=== PATIENT | female | born 1955 | race Caucasian/White ===

== ENCOUNTER 2016-09-27 09:13 | Inpatient (IN) | payer OTHER ==
[2016-09-27] VITALS (9 sets, daily range): BP systolic 104–126; BP diastolic 60–67; PULSE 75–86; RESP 13–18; O2SAT 94–99
[~2016-09-27] VITALS: Ht 166.4 cm; Wt 59.3 kg
[~2016-09-27 09:13] MED LIST: ACYC400T2 PO; Bupivacaine Liposome 1.3% 20 mL Inj INFILTRATE ONE; CALC-714 PO; CETI10CA PO; CHOL500011 PO; CYAN1TAB42 PO; DIPH25CA6 PO; DOCU-41 PO; ESCI20TA38 PO; GABA-502 PO; Gentamicin 40 mg/mL 2 mL Inj IV ONE; Hip/Knee Infiltration Cocktail IM ONE; LYSI1000 PO; Lactated Ringer's 1,000 ML IV SCH; MELO7.5O2 PO; MULT-1018 PO; OMEP20CA11 PO; RANI150T11 PO; SERT50TA9 PO; TRAZ-115 PO
[2016-09-27] MEDS ORDERED: CeFAZolin 2 Gm/50 mL D5W Duplex Bag IV ONE (09:46)
[2016-09-27] MEDS ORDERED: Hip/Knee Infiltration Cocktail IM ONE ×7 (10:00)
[2016-09-27] MEDS: Lactated Ringer's 1,000 ML IV SCH ×4 (10:53→23:46)
[2016-09-27] MEDS ORDERED: Magnesium Hydroxide 10 mL Oral Concentration PO PRN (10:55)
[2016-09-27] MEDS ORDERED: Sodium Biphos-Phos 133 mL Enema RECTAL PRN (10:55)
[2016-09-27] MEDS ORDERED: Ketorolac 15 mg/mL Inj IVPUSH PRN (10:55)
[2016-09-27] MEDS ORDERED: HYDROcodone-APAP 5-325 mg Tablet PO PRN (10:55)
[2016-09-27] MEDS ORDERED: diphenhydrAMINE 25 mg Capsule PO PRN (10:55)
[2016-09-27] MEDS ORDERED: Ondansetron 2 mg/mL 2 mL Inj IVPUSH PRN ×2 (10:55→11:00)
[2016-09-27] MEDS ORDERED: Polyethylene Glycol (PEG) 17 Gm Powder PO PRN (10:55)
[2016-09-27] MEDS ORDERED: MetoCLOpramide 5 mg/mL 2 mL Inj IVPUSH PRN ×2 (10:55→11:00)
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
[2016-09-27] MEDS ORDERED: Lactated Ringer's 500 ML IV PRN (10:56)
[2016-09-27] MEDS ORDERED: Lactated Ringer's 1,000 ML IV SCH (10:56)
[2016-09-27] MEDS ORDERED: Labetalol 5 mg/mL 4 mL Inj IV PRN (11:00)
[2016-09-27] MEDS ORDERED: Phenylephrine 10,000 mCg/mL Inj IVPUSH PRN (11:00)
[2016-09-27] MEDS ORDERED: Atropine 0.4 mg/mL Inj IVPUSH PRN (11:00)
[2016-09-27] MEDS ORDERED: fentaNYL-PF 50 mCg/mL 2 mL Inj IVPUSH PRN (11:00)
[2016-09-27] MEDS ORDERED: EPHEDrine Sulfate 50 mg/mL Inj IVPUSH PRN (11:00)
[2016-09-27] MEDS ORDERED: HYDROmorphone 1 mg/mL Inj IVPUSH PRN (11:00)
[2016-09-27] MEDS ORDERED: Dexamethasone 4 mg/mL Inj IVPUSH PRN (11:00)
[2016-09-27] MEDS ORDERED: hydrALAZINE 20 mg/mL Inj IVPUSH PRN (11:00)
--- NOTE | 2016-09-27 11:04 | PCM.ORTHOP ---
Orthopedic Operative Report Date of Service: Sep 27, 2016 Pre Operative Diagnosis left shoulder arthritis, massive RTC tear Post Operative Diagnosis left shoulder arthritis, massive RTC tear Procedure left reverse total shoulder arthroplasty, biceps tenodesis Surgeon Surgeon: Karthik Gutierrez MD Assistants: Corwin Glass Indication for Procedure left shoulder arthritis, massive RTC tear Findings left shoulder arthritis, massive RTC tear, biceps tenosynovitis Details of Procedure Implant:[employer] Reverse fracture system: 36+ 2 huemral insert, size 7 CaP coated humeral stem, small glenoid baseplate, size 36+4 mm glenosphere, central non-locking screw size 6.5X25mm, peripheral locking screw 30mm, peripheral locking screw 30mm Patient Status: Patient was extubated and taken to recovery room in stable condition. Indications: Ana Perales presents with shoulder pain with pseudoparalysis and glenohumeral arthritis. The patient was offered conservative treatments versus surgical intervention given the severity of the injury and the patient opted for surgery. A clear explanation was given to the patient regarding the condition present, and the available conservative and surgical options. It was emphasized that the risks and benefits of surgery include but are not limited to infection, wound healing problems, damage to adjacent structures such as nerves, blood vessels and tendons, jail disability and pain, arthritis, hypersensitivity, deep vein thrombosis, pulmonary embolism, broken hardware, failure of surgery, need for further procedures at time of surgery or later, cast related problems, loss of limb or life. The patient was given an explanation and the patient voiced understanding of what to expect after the procedure or surgery, the limitations in activities of daily living, the likely duration for post operative recovery and the instructions that are to be followed. At the end the patient was invited to seek clarification or ask further questions but there were none. The patient voiced understanding of the entire consultation. Description of Procedure: Patient was taken to operating room and transferred to operating table in supine position. Time out was performed with both anesthesia and orthopaedics faculty present to confirm details of case to be performed. After time out performed, patient placed under general anesthesia and endotracheal tube secured into place. Once endotracheal tube secured, the patient was placed into the modified beach-chair position at about 40 degrees of flexion. Patient position was again checked to ensure all bony prominences adequately padded. The left arm was prepped and draped in the usual sterile fashion to the level of the neck. A standard deltopectoral incision was made beginning immediately above the coracoid process and extending distally and laterally. The deltoid muscle was split through the interval being carefully not to release any deltoid along the clavicle or humerus. The proximal one-third of the pectoralis major muscle was incised off the humerus for better exposure. The supraspinatus and infraspinatus muscles were intact and still attached to the fractured greater tuberosity. The subscapularis was intact and also still attached to the fractured lesser tuberosity. It was incised through the tendinous portion just medial to the lesser tuberosity and tagged with 2-0 Fiberwire. The arm was externally rotated to expose the humeral head while the anterior humeral circumflex vessels ("3 sisters") were identified, ligated and then cut protecting the axillary nerve throughout inferior and medial to the vessels. The long head of the biceps was identified along the bicipital groove, incised at its origin and tagged for later tenodesis to the pectoralis major A airline pilot flight instructor hole was then made with a 4 mm drill through the humeral head along the axis of the humeral shaft just lateral to the head's articular surface and just posterior to the bicipital groove. The 6 mm trochar pointed reamer was then inserted with continued circumferential reaming in 1 mm increments until light cortical contact was achieved with the reamer. The intramedullary resection guide was assembled and the version control grayson was placed to allow for 30 degrees retroversion. The neck cut was verified with a bat wing. Two threaded Steinmann pins were placed in the resection guide to secure the block to bone and the reamer and guide boom were removed prior to resecting the humeral head with the oscillating saw. We started broaching with a broach and ended with the 7 mm broach which solidly fit in the canal and fully seated on the humerus. The broach cover was then used to protect the humerus while attention was turned to the glenoid. Any remaining labrum was removed from the glenoid along with surrounding osteophytes. The glenoid sizer was centered on the glenoid and a 3.2 mm Steinmann pin was inserted with a 10 degree inferior tilt with solid bone purchase. The glenoid was then reamed with the cannulated base plate reamer over the top of the Steinmann pin until a small bone shelf was evident circumferentially. The cannulated trial glenoid baseplate was placed and fully seated. The glenoid baseplate implant was impacted and fully seated. The 6.5 mm central screw was then inserted following removal of the Steinmann with good compression. The 2 surrounding peripheral screws were then drilled with a 2.7 mm drill through the threaded locking guides and then placed. The glenosphere trial was placed and tested with a good fit. The glenosphere implant was then tamped in place with appropriate offset. The standard humeral tray/bearing were placed and a trial reduction was performed. The patient achieved 80 degrees of external/internal rotation, 110 degrees of abduction, 45 degrees extension and 120 degrees of forward flexion with complete stability. The trail components were removed and the wound was copiously irrigated with 3 liters of normal saline. The stem was inserted followed by impaction of the humeral tray/ bearing. The implant was reduced and once again range of motion was found to be 80 degrees of external/internal rotation, 110 degrees of abduction, 45 degrees extension and 120 degrees of forward flexion with complete stability. The wound was again irrigated. The subscapularis was repaired with drill holes in the humerus prior to implantation of the stem with #2 Fiberwire through previously made bone tunnels. The long head of biceps was tenodesed to the pectoralis major. The deltoid interval was closed with 0 vicryl followed by 2-0 vicryl subcutaneous closure and then monocryl stitches for the skin. A drain was placed as well as transexamic acid and a local anesthetic cocktail into the skin. Sterile dressings were applied along with a shoulder immobilizer and abduction pillow. The patient was then awoken from anesthesia and extubated, his neurovascular status was intact when checked in PACU. Pt tolerated procedure well and there was no complications. Nonweightbearing to affected upper extremity. Please leave sling on at all times. You may remove sling 3 times a day to move the elbow wrist and fingers. Do not move your shoulder. PROM only, IR to body, ER to 0 degrees, FF to 90 degrees, ABD to 0 degrees. Keep your arm at neutral, NO external rotation of the arm. Please keep the affected extremity elevated when possible. You may use ice and/or heat as needed for comfort. Follow-up in 2 weeks with the PA with 2-view xrays and for suture removal and Steri-Strip application. Follow-up with me at 6 weeks. You will have pain medications, medication for constipation and aspirin 81 qdaily X 2 weeks. Grafts, Implants: Implants-See Implant Record Complications There were no periprocedural complications identified. Condition Stable Anesthetic Administered: GA Catheters: None Output, Estimated Blood Loss: 200 Blood Admin during surgery: No Surgical Cast or Splint: Shoulder Immobilizer Surgical Specimen Removed: No Specimen sent to Pathology: No copies to: Karthik Gutierrez MD, Christopher L MD Sep 27, 2016 11:04
[2016-09-27] MEDS ORDERED: Bupivacaine Liposome 1.3% 20 mL Inj ONE (11:24)
[2016-09-27] MEDS ORDERED: fentaNYL-PF 50 mCg/mL 2 mL Inj ONE (11:39)
[2016-09-27] MEDS ORDERED: FLUT9.9S NS (11:53)
[2016-09-27] MEDS ORDERED: MELA3TAB35 PO (11:53)
[2016-09-27] MEDS ORDERED: Gentamicin 40 mg/mL 2 mL Inj IRRIGATION ONE (12:39)
[2016-09-27] MEDS ORDERED: Bacitracin 50,000 unit Inj IRRIGATION ONE (12:40)
[2016-09-27] MEDS ORDERED: Bupivacaine Liposome 1.3% 20 mL Inj INFILTRATE ONE (12:40)
[2016-09-27] MEDS ORDERED: CeFAZolin Inj 2 GM in IV Premix 1 EACH IV SCH (12:53)
--- NOTE | 2016-09-27 14:36 | PCM.ANEP1 ---
Post Anesthesia Phase 1 PACU Phase 1 Assessment Date of Service: Sep 27, 2016 Vital Signs Vital Signs Date Time Temp Pulse Resp B/P Pulse Ox O2 Delivery O2 Flow Rate FiO2 09/27/16 14:15 83 15 119/60 94 Room Air 09/27/16 14:10 82 17 123/64 94 Room Air 09/27/16 14:05 83 16 109/64 99 Simple Mask 10 09/27/16 14:00 36.5 85 16 126/61 99 Simple Mask 10 Anesthetic Administered: GA Level of Alertness: Awake, talking GUERIN's with Equal Strength: No Pain: No Nausea or Vomiting: No Oxygen Delivery: Simple Mask Lungs: Normal Air Movement Charli Matthews MD Sep 27, 2016 14:36
--- NOTE | 2016-09-27 14:42 | DRSVH ---
PROCEDURE: X-RAY LEFT SHOULDER, MINIMUM TWO VIEWS ([id number]) INDICATIONS: s/p left reverse TSA TECHNIQUE: 2 views of the shoulder were acquired. COMPARISON: None. FINDINGS: Bones: Left humeral arthroplasty. Hardware is intact. There is good anatomic alignment. Soft tissues: No suspicious soft tissue calcifications. IMPRESSION: Left humeral arthroplasty. Dictated by: Joleen Avila M.D. on 09/27/2016 at 14:40 Approved by: Joleen Avila M.D. on 09/27/2016 at 14:40
--- NOTE | 2016-09-27 14:45 | PCM.ANEP2 ---
Post Anesthesia Evaluation ASA/CMS Post Anesthesia Date of Service: Sep 27, 2016 VS in Patient's Normal Range?: Yes Resp Stable; Airway Patent?: Yes CV Function & Hydration Stable: Yes Mental Status Recovered?: Yes Pain control Satisfactory?: Yes N/V Control Satisfactory?: Yes Charli Matthews MD Sep 27, 2016 14:45
[2016-09-27] MEDS ORDERED: Propofol 10,000 mCg/mL 20 mL Inj ONE (15:07)
[2016-09-27] MEDS ORDERED: EPHEDrine/NS 5 mg/mL 5 mL Syringe ONE (15:07)
[2016-09-27] MEDS ORDERED: Rocuronium 10 mg/mL 5 mL Inj ONE (15:07)
[2016-09-27] MEDS ORDERED: Ondansetron 2 mg/mL 2 mL Inj ONE (15:07)
[2016-09-27] MEDS ORDERED: Phenylephrine 10,000 mCg/mL Inj ONE (15:07)
[2016-09-27] MEDS ORDERED: Glycopyrrolate 0.2 mg/mL 5 mL Inj ONE (15:07)
[2016-09-27] MEDS ORDERED: Dexamethasone 4 mg/mL Inj ONE (15:07)
[2016-09-27] MEDS ORDERED: Lidocaine PF 1% 30 mL Inj ONE (15:07)
[2016-09-27] MEDS ORDERED: Neostigmine 1 mg/mL 5 mL Inj ONE (15:07)
--- NOTE | 2016-09-27 19:36 | NUR ---
Arrival to 1030 Pt arrival to 1030 at 1700 in bed with her own pillow and blanket. L arm in sling with bulky dressing to shoulder. Pt reports numbness felt in L thumb immediately postop is improving and thumb is now tingling. No pain felt in shoulder at this time. Denies nausea. R wrist in brace from prior surgeries. Pt requesting to go to the bathroom and was SBA with steady gait visualized to BR, tolerated well. Placed on CPOx per orders and is 96% on RA. Hourly rounding continues.
[2016-09-27] MEDS: HYDROmorphone 1 mg/mL Inj IVPUSH PRN (20:27)
[2016-09-27] MEDS: Senna-Docusate 8.6-50 mg Tablet PO SCH (20:37)
[2016-09-27] MEDS: CeFAZolin Inj 2 GM in IV Premix 1 EACH IV SCH (20:56)
[2016-09-28 00:45] VITALS: BP 101/52; PULSE 57; RESP 18; O2SAT 97
[2016-09-28] MEDS: HYDROmorphone 1 mg/mL Inj IVPUSH PRN ×3 (00:52→09:57)
--- NOTE | 2016-09-28 03:55 | NUR ---
pain pt has been receiving 0.25mg of IV Dilaudid for pain this shift. she says that it effectively controls her pain. she denies any N/V tolerating a general diet. arm has remained in sling. nurse removed it once and performed PROM. pt complains of a slight tingling in her L thumb that has improved over the course of the shift. fingers are warm with good cap refill. care continues.
[2016-09-28] MEDS: CeFAZolin Inj 2 GM in IV Premix 1 EACH IV SCH (04:22)
[2016-09-28 06:20] VITALS: BP 100/63; PULSE 68; RESP 16; O2SAT 96
[2016-09-28 07:29] LABS: BASOPHILS % (AUTO) 0.1 % (0-3); EOSINOPHILS % (AUTO) 0.1 % (0-5); Mean Corpuscular Volume 90.9 fL (81-100); NEUTROPHILS % (AUTO) 68.1 % (40-74); Platelet Count 226 bil/L (150-400)
[2016-09-28 08:00] VITALS: PULSE 75; RESP 18; O2SAT 96
[2016-09-28] MEDS: Influenza (Adult) Vaccine 0.5 mL Syringe IM ONE ×2 (08:30→09:24)
--- NOTE | 2016-09-28 08:34 | PCM.PNORTH ---
Subjective Date of Service: Sep 28, 2016 Visit Information: Reason for Visit Left Rotator Cuff Tear Surgery/Surgery Date left reverse total shoulder arthroplasty 09/27/2016 Post-Op Day # 1 Date of Admission: Sep 27, 2016 at 15:06 Hospital Day # Subjective Patient is reviewing how to wear her sling properly with OT. She has multiple questions. We reviewed proper positioning. Patient states she does not tolerate oxycodone or hydrocodone. It causes cramping, nausea and vomiting. The only oral pain medication she can tolerate is Dilaudid. She also requests stool softener to prevent constipation. Postop General: No Shortness of Breath, No Chest Pain, Good Appetite Pain Management: IV Push Objective Exam Objective Patient is seen sitting up at bedside. She is alert oriented cooperative to exam. Shoulder immobilizer is reviewed with the patient including how to open the sling to do range of motion for the elbow wrist and hand. Surgical dressing is clean dry and intact. Sensation is intact to light touch. Radial pulses 2+. Vital Signs and I/O Vital Sign - Last Date Time Temp Pulse Resp B/P Pulse Ox O2 Delivery O2 Flow Rate FiO2 09/28/16 06:20 36.0 68 16 100/63 96 Room Air 09/27/16 14:05 10 Intake and Output 09/27/16 09/27/16 09/28/16 Cumulative From/Thru 15:00 23:00 07:00 09/25/16 15:09 - 09/27/16 18:55 Intake Total 1745 ml 600 ml 2345 ml Output Total 200 ml 1200 ml 1400 ml Balance 1545 ml -600 ml 945 ml Intake Oral 600 ml 600 ml IV Total 1745 ml 1745 ml Output Urine Total 1200 ml 1200 ml Estimated Blood Loss 200 ml 200 ml Lab & Micro Results Laboratory Tests Test 09/28/16 07:05 White Blood Count 8.4th/mm3 (3.8-10.1) Red Blood Count 4.07mil/mm3 (3.90-5.20) Hemoglobin 12.2g/dL (12.0-15.6) Hematocrit 37.0% (35.0-46.0) Mean Corpuscular Volume 90.9fL (81-100) Mean Corpuscular Hemoglobin 30.0pg (27.0-35.0) Mean Corpuscular Hemoglobin Concent 33.0% (32.0-37.0) Red Cell Distribution Width 14.0% (12.3-15.4) Platelet Count 226bil/L (150-400) Neutrophils (%) (Auto) 68.1% (40-74) Lymphocytes (%) (Auto) 16.6% (14-46) Monocytes (%) (Auto) 15.0% (4-12) Eosinophils (%) (Auto) 0.1% (0-5) Basophils (%) (Auto) 0.1% (0-3) Result Diagram: 09/28/16 0705 Catheters: None Assessment & Plan Impression Status post left reverse total shoulder arthroplasty Problems: Plan Patient has been seen by occupational therapy Wound care: leave dressing in place for 3 days. She may remove surgical dressing in 3 days, and apply a new dressing. Activity: Nonweightbearing left upper extremity. No active motion of left shoulder Patient may loosen sling to move elbow wrist and hand Ice the shoulder multiple times a day Discharged home this morning Follow-up with Dr. Melendez in [address] [facility] Pain Management: dilaudid IV Resuscitation Status: CPR: Attempt Resuscitation [place] PA-C Sep 28, 2016 08:34
--- NOTE | 2016-09-28 08:39 | PCM.DIOPOR ---
OP Ortho Discharge Instruction Dates of Hospitalization Date of Discharge: Sep 28, 2016 Providers Admitting Physician: Karthik Gutierrez MD Primary Care Physician: Other,Physician Attending Physician: Karthik Gutierrez MD Diagnosis at Time of Discharge Post operative diagnosis Status post left shoulder reverse total shoulder arthroplasty Diet Discharge Diet: No restrictions Activity Activity-General: Ice incision 3-5 time/day for 20min Left Upper Extremity: Non-weight bearing Range of motion restrictions: No active motion for left shoulder 3 times a day you may loosen the sling to do motion for the elbow, wrist and hand as long as the arm stays next to the torso Discharge Assist Device: Other (shoulder immobilizer) Dressing and Incisional Care Dressing Care: Keep dressing clean, dry & intact Dressing Instructions: leave dressing in place until seen in office in 2 weeks Additional Instructions Discharge Instructions Take aspirin 81 mg once a day for 2 weeks Take MiraLAX daily as needed to prevent constipation Leave sling in place. Follow Up Plan Follow Up Plan Follow up with Dr. Gutierrez at [facility] in 2 weeks Iliana Dey PA-C Sep 28, 2016 08:39
[2016-09-28] MEDS ORDERED: POLY17PO6 PO (08:42)
[2016-09-28] MEDS ORDERED: HYDR2TAB27 PO (08:42)
--- NOTE | 2016-09-28 09:05 | PCM.DC.ORT ---
Discharge Summary Date of Service: Sep 28, 2016 Date of Hospital Admission: Sep 27, 2016 at 15:06 Date of Surgery: Sep 27, 2016 Date of Discharge: Sep 28, 2016 Reason for Hospitalization: Left shoulder massive rotator cuff tear Procedures Performed: Left shoulder reverse arthroplasty Hospital Course: The patient was admitted to the hospital on 09/27/2016 and underwent the above procedure. The surgeon was Dr. Solitario. Patient tolerated procedure well as transferred to recovery room in stable condition. Patient was then transferred to OS E. Pain is managed with IV Dilaudid. Patient was seen by occupational therapy on postop day 1. The patient was discharged home in stable condition. Pain medication: Dilaudid 2 mg by mouth. MiraLAX for constipation. Aspirin 81 mg once a day for 2 weeks. Diagnosis at Time of Discharge Status post left shoulder reverse arthroplasty Problems: Disposition: Discharged home in stable condition Additional Information Follow-up with Dr. Gutierrez at [facility] in 2 weeks and 6 weeks Discharge Instructions: Keep dressing clean and dry. In 3 days remove surgical dressing and apply Island bandage No active motion of the shoulder for 6 weeks Where a shoulder immobilizer at all times except to shower Loosen the sling 3 times a day to move the elbow wrist and hand No lifting, carrying, pushing and pulling or leaning on the left arm Acyclovir (Acyclovir) 400 Mg Tablet 400 MG PO BID PRN PRN PRN Calcium Carb/Magnesium Cmb #10 (Uriel-Mag Tablet Chewable) 1 Each Tab.chew 1 EACH PO DAILY Cetirizine HCl (Zyrtec) 10 Mg Capsule 10 MG PO HS PRN PRN allergy sx Cholecalciferol (Vitamin D3) (Vitamin D3) 5,000 Unit Tablet 5,000 UNIT PO DAILY Cyanocobalamin/Folic Acid (Vitamin M07-Sjkte Acid Tablet) 1 Each Tablet 1 EACH PO DAILY Docusate Sodium (Colace) 100 Mg Capsule 100 MG PO BID PRN PRN For Constipation Fluticasone Propionate (Flonase Allergy Relief) 50 Mcg/Actuation [place].susp 9.9 ML NS PRN For Congestion Gabapentin (Gabapentin) 300 Mg Capsule 600 MG PO qam, qpm Gabapentin (Gabapentin) 300 Mg Capsule 900 MG PO HS PRN PRN For Pain Hydromorphone (Dilaudid) 2 Mg Tablet 2 MG PO Q4H PRN PRN Pain Lysine (Lysine) 1,000 Mg Tablet 500 MG PO DAILY Melatonin (Melatonin) 3 Mg Tablet 3 MG PO PRN For Pain Polyethylene Glycol 3350 (Miralax) 17 Gm Powd.pack 17 GM PO DAILY PRN PRN For Constipation Ranitidine (Zantac) 150 Mg Tablet 150 MG PO BID PRN PRN For Epigastric Distress Sertraline HCl (Sertraline) 50 Mg Tablet 25 MG PO DAILY Trazodone (Trazodone) 50 Mg Tablet 50-100 MG PO HS PRN PRN Insomnia Iliana Dey PA-C Sep 28, 2016 09:05
[2016-09-28] MEDS: Senna-Docusate 8.6-50 mg Tablet PO SCH (09:23)
--- NOTE | 2016-09-28 09:44 | NUR ---
Evaluation completed. Please go to "Notes" then click on "Assessments and Notes" (bottom left corner of screen). Then select appropriate discipline tab on top of screen.
--- NOTE | 2016-09-28 11:30 | NUR ---
Discharge Patient DC to home with friend via private vehicle. All DC education and instructions given to patient prior to DC. Verbalizes understanding of all. Prescriptions given, and follow up appointment information given. IV access removed intact with no s/s of infection. Patient verbalizes all needs met at this time.
== END 2016-09-28 11:40 | disposition home or self-care (01) | DRG 315 ==
LOC: SAS 09:13 → OSC 15:06
PROVIDERS: ADMIT Orthopaedic Surgery; ATTEND Orthopaedic Surgery
PROC: 0RRK00Z Replacement of Left Shoulder Joint with Reverse Ball and Socket Synthetic Substitute, Open Approach (ICD-10-PCS; principal; 2016-09-27 11:00)
DX: M75.122 Complete rotator cuff tear or rupture of left shoulder, not specified as traumatic (principal); M19.012 Primary osteoarthritis, left shoulder; M75.22 Bicipital tendinitis, left shoulder; M79.7 Fibromyalgia; F41.9 Anxiety disorder, unspecified; E03.9 Hypothyroidism, unspecified; Z87.442 Personal history of urinary calculi; Z79.52 Long term (current) use of systemic steroids; Z87.440 Personal history of urinary (tract) infections